=== PATIENT | female | born 1975 | race Asian ===

== ENCOUNTER 2016-12-09 21:18 | Emergency (ER) | payer BC, OTHER ==
[2016-12-10] MEDS ORDERED: HYDROcodone/ACETAMIN 5-325 MG* 1 TAB PO ONE (01:57)
[2016-12-10 02:15] VITALS: BP 121/87
--- NOTE | 2016-12-10 02:18 | ED ---
Maxx Hodgson SooYoung, scribed for Jayden Cantrell MD on 12/10/16 at 0002 . Laceration/Wound HPI - HPI Summary HPI Summary: A 41 y/o F presents to ED with lac on R foot onset [employer]. Pt was in the shower and a metal/ceramic shower shelf fell onto her R foot and cut the base of her second toe. Associated sx: toe numbness, toe pain. Denies ankle pain. Pt is able to move her toe. She doesn't feel a foreign body. Tetanus is UTD. - History of Current Complaint Stated Complaint: RIGHT FOOT LAC Time Seen by Provider: 12/09/16 23:57 Hx Obtained From: Patient Hx Last Menstrual Period: now Mechanism of Injury: Sharp/Blunt Trauma Onset/Duration: Sudden Onset, Lasting Hours, Still Present Onset Severity: Mild Current Severity: Mild Pain Intensity: 0 Pain Scale Used: 0-10 Numeric Associated Signs & Symptoms: Numbness - R second toe, Pain - R second toe - Allergy/Home Medications Allergies/Adverse Reactions: Allergies Allergy/AdvReac Type Severity Reaction Status Date / Time No Known Allergies Allergy Verified 10/27/14 10:45 PMH/Surg Hx/FS Hx/Imm Hx Previously Healthy: Yes Endocrine/Hematology History: Denies: Hx Diabetes, Hx Thyroid Disease Cardiovascular History: Denies: Hx Hypertension Respiratory History: Reports: Hx Asthma - as a child Denies: Hx Chronic Obstructive Pulmonary Disease (COPD) GI History: Denies: Hx Ulcer Infectious Disease History: No Infectious Disease History: Reports: Traveled Outside the [place] in Last 30 Days - nkecih Denies: Hx Hepatitis, Hx Human Immunodeficiency Virus (HIV), History Other Infectious Disease - Family History Known Family History: Positive: Hypertension - mother Negative: Cardiac Disease, Diabetes - Social History Occupation: Employed Full-time Lives: With Family Alcohol Use: None Hx Substance Use: No Substance Use Type: Reports: None Hx Tobacco Use: No Smoking Status (MU): Never Smoked Tobacco Review of Systems Negative: Fever Positive: Other - pos: R toe pain, numbness and lac. Negative: Arthralgia All Other Systems Reviewed And Are Negative: Yes Physical Exam - Summary Physical Exam Summary: The patient is well-nourished in no acute distress and in no acute pain. The skin is warm and dry and skin color reflects adequate perfusion. 2nd toe has 1.5cm lac over dorsal aspect at base of R toe. HEENT: The head is normocephalic and atraumatic. The pupils are equal and reactive. The conjunctivae are clear and without drainage. Nares are patent and without drainage. Mouth reveals moist mucous membranes and the throat is without erythema and exudate. The external ears are intact. Neck is supple with full range of motion and non-tender. There are no carotid bruits. There is no neck vein distension. Respiratory: Chest is non-tender. Lungs are clear to auscultation and breath sounds are symmetrical and equal. Cardiovascular: Hear is regular rate and rhythm. There is no murmur or rub auscultated. There is no peripheral edema and pulses are symmetrical and equal. Musculoskeletal: There is no back pain noted. Extremities are non-tender with full range of motion. There is good capillary refill. There is no peripheral edema or calf tenderness elicited. RLE exam: good pulses. FROM. 2nd toe has 1.5cm lac over dorsal aspect at base of toe. Limited extension of 2nd toe, some decreased light sensation. Unable to assess capillary refill. No bony tenderness of osseous structures of foot. Neurological: Patient is alert and oriented to person, place and time. The patient has symmetrical motor strength in all four extremities. Cranial nerves are grossly intact. Deep tendon reflexes are symmetrical and equal in all four extremities. Psychiatric: The patient has an appropriate affect and does not exhibit any anxiety or depression. Triage Information Reviewed: Yes Vital Signs On Initial Exam: Initial Vitals Temp Pulse Resp BP Pulse Ox 97.8 F 71 16 113/82 99 12/09/16 21:29 12/09/16 21:29 12/09/16 21:29 12/09/16 21:29 12/09/16 21:29 Vital Signs Reviewed: Yes - [place] Coma Scale Coma Scale Total: 15 Procedures - Laceration/Wound Repair 1 Location: lower extremity - R second toe Description: Linear Anesthesia: Local, Digital - block, 1.0%, [place] Length, Depth and Shape: 1.5cm Irrigated w/ Saline (ccs): 400 Laceration/Wound Explored: clean, Other - Extensive tendon is lacerated, unable to see proximal aspect Closure: Single Layer Suture Type: Prolene - 4-0 Number of Sutures: 6 Diagnostics - Vital Signs Vital Signs Temp Pulse Resp BP Pulse Ox 12/09/16 21:31 98.7 F 66 16 113/82 100 12/09/16 21:29 97.8 F 71 16 113/82 99 - Laboratory Lab Statement: Any lab studies that have been ordered have been reviewed, and results considered in the medical decision making process. - Radiology Foot XR Xray Interpretation: No Acute Changes - Soft tissue swelling. No fx. No foreign body. Radiology Interpretation Completed By: ED Physician Re-Evaluation - Re-Evaluation 1 Re-Evaluation Time: 01:49 Change: Improved Comment: Discussing XR, consult and dispo results with pt. Pt voiced understanding. Laceration Repair Course/Dx - Course Course Of Treatment: A 41 y/o F presents to ED with lac on R foot onset [employer]. Pt was in the shower and a metal/ceramic shower shelf fell onto her R foot and cut the base of her second toe. Associated sx: toe numbness, toe pain. Denies ankle pain. Pt is able to move her toe. She doesn't feel a foreign body. Tetanus is UTD. Lac repair performed. XR shows soft tissue swelling. No fx. No foreign body. Pt given [place] in ED. Will D/C home to f/u with ortho today. Stitches out in 5 days. Given crutches, no weight bearing. - Differential Dx Differental Diagnoses: Laceration, Tendon Laceration - Clinical Impression Provider Diagnoses: Tendon laceration, right second toe, laceration Provider Diagnoses: (Ruled Out): laceration repair - Physician Notifications Discussed Care Of Patient With: Anthony Moya - ortho Time Discussed With Above Provider: 01:13 Instructed by Provider To: Other - Recommends hard shoe and crutches, call office for appt for f/u. Discharge - Discharge Plan Condition: Stable Disposition: HOME Prescriptions: HYDROcodone/ACETAMIN 5-325 MG* [[place] 5-325 TAB*] 1 tab PO Q6H PRN #16 tab MDD 4 PRN Reason: pain Patient Education Materials: Hydrocodone/Acetaminophen (By mouth), Care For Your Stitches (ED), Crutch Instructions (ED), Laceration (ED) Referrals: Jenna Lozano MD [Primary Care Provider] - 5 Days Anthony Moya MD [Medical Doctor] - As Soon As Possible Additional Instructions: Call Dr. Gold ortho, in the AM today to set up an appt for follow up. Keep weight off your foot, use your crutches. Follow up with your primary care provider in 5 days to have your sutures removed. Clean your stitches 2x a day with soap and water, apply antibiotic ointment. Please return to the ED for new or worsening symptoms. The documentation as recorded by the Maxx cevallos SooYoung accurately reflects the service I personally performed and the decisions made by me, Jayden Cantrell MD.
--- NOTE | 2016-12-10 07:47 | RAD ---
HISTORY: Right foot trauma COMPARISONS: None VIEWS: 3, Frontal, lateral, and oblique views of the right foot FINDINGS: BONE DENSITY: Normal. BONES: There is no displaced fracture. JOINTS: There is no arthropathy. ALIGNMENT: There is no dislocation. SOFT TISSUES: Unremarkable. OTHER FINDINGS: None. IMPRESSION: NO ACUTE OSSEOUS INJURY. IF SYMPTOMS PERSIST, RECOMMEND REPEAT IMAGING.
== END 2016-12-10 01:22 | disposition home or self-care (01) ==
LOC: ED 21:18
DX: S91.114A Laceration without foreign body of right lesser toe(s) without damage to nail, initial encounter (principal); M79.674 Pain in right toe(s); X58.XXXA Exposure to other specified factors, initial encounter; Y93.9 Activity, unspecified; Y92.9 Unspecified place or not applicable
CPT/HCPCS: 99282